=== PATIENT | male | born 1950 ===

== ENCOUNTER 2018-10-02 08:26 | Outpatient (CLI) | payer OTHER | END 2018-10-02 08:34 | disposition home or self-care (01) | LOC: RAD 08:26 | DX: I10 Essential (primary) hypertension (principal) ==

== ENCOUNTER 2021-10-17 15:02 | Outpatient (CLI) | payer OTHER | END 2021-10-17 15:09 | disposition home or self-care (01) | LOC: RAD 15:02 | PROVIDERS: ATTEND Specialist | DX: N20.1 Calculus of ureter (principal) ==

== ENCOUNTER 2021-11-20 13:47 | Outpatient (CLI) | payer OTHER | END 2021-11-20 13:48 | disposition home or self-care (01) | LOC: SONOGRAMA 13:47 | PROVIDERS: ATTEND Urology | DX: N40.1 Benign prostatic hyperplasia with lower urinary tract symptoms (principal) ==

== ENCOUNTER 2022-04-15 11:52 | Outpatient (CLI) | payer OTHER | END 2022-04-15 12:01 | disposition home or self-care (01) | LOC: RAD 11:52 | PROVIDERS: ATTEND Urology | DX: N20.1 Calculus of ureter (principal) ==

== ENCOUNTER 2022-07-24 10:29 | Outpatient (CLI) | payer OTHER | END 2022-07-24 10:39 | disposition home or self-care (01) | LOC: SONOGRAMA 10:29 | PROVIDERS: ATTEND Urology | DX: N20.1 Calculus of ureter (principal) ==

== ENCOUNTER → 2023-06-24 | Outpatient (CLI) | payer OTHER | END | disposition home or self-care (01) | LOC: SONOGRAMA 10:37 | PROVIDERS: ATTEND Urology | DX: Z87.442 Personal history of urinary calculi (principal) ==

== ENCOUNTER 2024-10-12 12:51 | Outpatient (CLI) | payer OTHER | END 2024-10-12 12:55 | disposition home or self-care (01) | LOC: SONOGRAMA 12:51 | PROVIDERS: ATTEND Urology | DX: Z87.442 Personal history of urinary calculi (principal) ==

== ENCOUNTER 2025-04-07 11:32 | Outpatient (CLI) | payer OTHER | END 2025-04-07 11:33 | disposition home or self-care (01) | LOC: TOM 11:32 | PROVIDERS: ATTEND Urology | DX: N20.0 Calculus of kidney (principal) ==